=== PATIENT | male | born 1950 | race Caucasian/White ===

== ENCOUNTER 2017-01-23 15:33 | Inpatient (IN) | payer OTHER ==
[2017-01-23] MEDS ORDERED: NS 1,000 ML IV ONE (15:49)
--- NOTE | 2017-01-23 15:49 | EDPHY ---
H & P HPI/ROS: CHIEF COMPLAINT: Facial numbness HISTORY OF PRESENT ILLNESS: The patient is a 66-year-old male who presents to the emergency department via EMS with right facial numbness and right arm numbness. Patient states he drank heavily last night. This is quite typical for him. When he woke at 5:30 a.m. this morning he noticed when he woke that he had right-sided facial numbness. He states that his teeth felt like he had had novacane. He states at baseline he often has hand numbness and did not notice any particular worsening hand numbness on waking. His symptoms improved but remained present during his morning routine. Patient continued to drink this morning and states he drank approximately one pint of hard alcohol. He states that his right arm and right leg numbness waxed and waned throughout morning. He denies any headache. No visual change. No fevers or chills. EMS reported a negative Prescott Stroke Scale. REVIEW OF SYSTEMS: My complete review of systems is negative except as mentioned in the HPI. Past Medical/Surgical History: Includes high cholesterol Past surgical history: Noncontributory Social history: The patient drinks heavily. He denies drug use Smoking Status: Never smoked Physical Exam: Vitals noted GENERAL: Well-appearing, in no acute distress, alert. HEENT: Eyes normal to inspection, normal pharynx, no signs of dehydration. NECK: No thyromegaly, no lymphadenopathy, supple. RESPIRATORY: Clear to auscultation bilaterally, no rales, rhonchi or wheezing. CVS: Regular rate and rhythm, no rubs, murmurs, or gallops. ABDOMEN: Soft, nontender, nondistended, no organomegaly. BACK: Normal to inspection, no CVA tenderness. SKIN: Normal color, no rash, warm, dry. No pallor. EXTREMITIES: No pedal edema, no calf tenderness, no Homans sign or cords, no joint swelling. NEURO/PSYCH: Higher functions: Alert and Oriented x3. Normal speech and cognition. Normal mood and affect. Cranial nerves: Normal as tested. Cerebellar: Normal as tested. Good finger to nose, good [id number]-[id number]-lkin, normal gait. Peripheral exam: Normal motor exam. Normal sensation. Normal reflexes. NIHSS = 0 Constitutional: Initial Vital Signs Temperature (C) 36.6 C 01/23/17 15:39 Heart Rate 59 L 12/09/17 15:39 Respiratory Rate 18 01/23/17 15:39 Blood Pressure 103/90 H 01/23/17 15:39 O2 Sat (%) 98 01/23/17 15:39 O2 Delivery Mode Room Air Allergies/Adverse Reactions: No Known Allergies Allergy (Unverified 01/23/17 15:38) Home Medications: Medication Instructions Recorded Aspirin 325 mg (*) 01/23/17 Lipitor 01/23/17 Medical Decision Making - Diagnostics EKG Interpretation: EKG shows normal sinus rhythm, normal rate, normal axis, normal intervals. There are no ST or T-wave abnormalities. EKG is normal as interpreted by me. Imaging Results: Imaging Impressions Head CT 01/23/17 15:50 Impression: Normal noncontrast CT of the brain. Results called to Dr. Sophia Bishop at 5:00 PM at the time of the interpretation. Brain MRI 01/23/17 17:09 Impression: 1. Findings consistent with acute lacunar type infarct of the left thalamus. 2. Negative for acute cortical ischemia. 3. Numerous punctate foci of white matter T2 hyperintensity consistent with small vessel disease. ED Course/Re-evaluation: In the emergency department I discussed possibly etiologies with the patient. I answered all his questions. Laboratory studies and head CT were ordered. Patient states he took 3 full-strength aspirin this morning. The patient's NIHSS equals 0 and his neuro exam is normal. He woke with the symptoms at 5:30 a.m. this morning. He is out of the tPA window. I did not make him a stroke activation. EKG: Sinus rhythm at 57. Incomplete right bundle. Normal intervals. Flattened T-waves diffusely. I reviewed the patient's laboratory studies. CBC, chemistry and troponin were negative. Patient has an alcohol level 163. Awaiting CT results. CT: Please refer the dictated report. No acute disease noted. I discussed the results with the patient. I rechecked him. He had no focal deficits on exam. NIHSS = 0. MRI of the brain was ordered. MRI of the brain: Please refer the dictated report. The patient has a left thalmic lacunar infarct. 1850: I discussed the results with the patient. On recheck he still complained of right facial numbness. He states the right arm numbness has improved. His neuro exam is normal. Specifically, he has no decreased sensation on exam in the 1, V2 or V3 distribution. The rest of his sensory and motor exam are normal. NIHSS =0 I discussed case with Dr. Sanchez from the hospitalist service. She will admit the patient. Differential Diagnosis: My differential includes but is not limited to ischemic CVA, hemorrhagic CVA, dissection, aneurysm, intoxication, electrolyte abnormality, sugar abnormality, subarachnoid hemorrhage, subdural hematoma, epidural hematoma, Guillen's palsy - Data Points Laboratory Results: Laboratory Results 01/23/17 15:37 01/23/17 15:37 01/23/17 01/23/17 01/23/17 18:43 15:37 15:37 WBC RBC Hgb POC Hgb Hct POC Hct MCV MCH MCHC RDW Plt Count MPV Neut % (Auto) Lymph % (Auto) Grainger % (Auto) Eos % (Auto) Baso % (Auto) Nucleat RBC Rel Count Absolute Neuts (auto) Absolute Lymphs (auto) Absolute Monos (auto) Absolute Eos (auto) Absolute Basos (auto) Absolute Nucleated RBC Immature Gran % Immature Gran # PT 12.7 SEC SEC (12.0-15.0) INR 0.93 (0.83-1.16) APTT 26.3 SEC SEC (23.0-38.0) POC Sodium Sodium 146 mEq/L H mEq/L (134-144) POC Potassium Potassium 4.2 mEq/L mEq/L (3.5-5.2) POC Chloride Chloride 105 mEq/L mEq/L (97-110) Carbon Dioxide 25 mEq/l mEq/l (22-31) Anion Gap 16 mEq/L mEq/L (8-16) POC BUN BUN 21 mg/dL mg/dL (7-23) Creatinine 0.8 mg/dL mg/dL (0.7-1.3) POC Creatinine Estimated GFR > 60 Glucose 91 mg/dL mg/dL (70-100) POC Glucose Calcium 10.2 mg/dL mg/dL (8.5-10.4) Troponin I < 0.012 ng/mL ng/mL < 0.012 ng/mL ng/mL (0.000-0.034) (0.000-0.034) Ethyl Alcohol 164 mg/dL H mg/dL (0-10) 01/23/17 01/23/17 15:37 15:30 WBC 4.79 10^3/uL 10^3/uL (3.80-9.50) RBC 4.81 10^6/uL 10^6/uL (4.40-6.38) Hgb 17.2 g/dL g/dL (13.7-17.5) POC Hgb 17.0 gm/dL gm/dL (13.7-17.5) Hct 47.3 % % (40.0-51.0) POC Hct 50 % % (40-51) MCV 98.3 fL fL (81.5-99.8) MCH 35.8 pg H pg (27.9-34.1) MCHC 36.4 g/dL g/dL (32.4-36.7) RDW 12.8 % % (11.5-15.2) Plt Count 188 10^3/uL 10^3/uL (150-400) MPV 10.4 fL fL (8.7-11.7) Neut % (Auto) 58.7 % % (39.3-74.2) Lymph % (Auto) 32.6 % % (15.0-45.0) Grainger % (Auto) 8.1 % % (4.5-13.0) Eos % (Auto) 0.0 % L % (0.6-7.6) Baso % (Auto) 0.4 % % (0.3-1.7) Nucleat RBC Rel Count 0.0 % % (0.0-0.2) Absolute Neuts (auto) 2.81 10^3/uL 10^3/uL (1.70-6.50) Absolute Lymphs (auto) 1.56 10^3/uL 10^3/uL (1.00-3.00) Absolute Monos (auto) 0.39 10^3/uL 10^3/uL (0.30-0.80) Absolute Eos (auto) 0.00 10^3/uL L 10^3/uL (0.03-0.40) Absolute Basos (auto) 0.02 10^3/uL 10^3/uL (0.02-0.10) Absolute Nucleated RBC 0.00 10^3/uL 10^3/uL (0-0.01) Immature Gran % 0.2 % % (0.0-1.1) Immature Gran # 0.01 10^3/uL 10^3/uL (0.00-0.10) PT INR APTT POC Sodium 145 mEq/L H mEq/L (134-144) Sodium POC Potassium 3.8 mEq/L mEq/L (3.3-5.0) Potassium POC Chloride 105 mEq/L mEq/L (97-110) Chloride Carbon Dioxide Anion Gap POC BUN 23 mg/dL mg/dL (7-23) BUN Creatinine POC Creatinine 1.1 mg/dL mg/dL (0.7-1.3) Estimated GFR Glucose POC Glucose 93 mg/dL mg/dL (70-100) Calcium Troponin I Ethyl Alcohol Medications Given: Discontinued Medications Sodium Chloride (Ns) 1,000 mls @ 500 mls/hr IV EDNOW ONE PRN Reason: Protocol Stop: 01/23/17 17:48 Last Admin: 01/23/17 15:55 Dose: 1,000 mls Point of Care Test Results: 01/23/17 15:30 POC Sodium 145 H POC Potassium 3.8 POC Chloride 105 POC BUN 23 POC Creatinine 1.1 POC Glucose 93 Departure - Departure Disposition: [facility] Inpatient Acute Clinical Impression: Paresthesia CVA (cerebral vascular accident) Qualifiers: CVA mechanism: unspecified Qualified Code(s): I63.9 - Cerebral infarction, unspecified Condition: Good
--- NOTE | 2017-01-23 15:59 | CPEKG ---
Heart Rate: 57 RR Interval: 1053 P-R Interval: 188 QRSD Interval: 110 QT Interval: 452 QTC Interval: 440 P Congers: 60 QRS Congers: 22 T Wave Congers: 169 EKG Severity - ABNORMAL ECG - EKG Impression: SINUS RHYTHM EKG Impression: INCOMPLETE RIGHT BUNDLE BRANCH BLOCK Electronically Signed By: Chao Castaneda 25-Jan-2017 08:45:00
[2017-01-23 16:01] LABS: % IMMATURE GRANULYOCYTES 0.2 % (0.0-1.1); ABSOLUTE IMMATURE GRANULOCYTES 0.01 10^3/uL (0.00-0.10); ADD DIFF? NO; ADD MORPH? NO; ADD SCAN? NO; ATYPICAL LYMPHOCYTE FLAG 10 (0-99); FRAGMENT RBC FLAG 0 (0-99); HEMATOCRIT 47.3 % (40.0-51.0); HEMOGLOBIN 17.2 g/dL (13.7-17.5); LEFT SHIFT FLG 0 (0-99); LIPEMIA HEMOLYSIS FLAG 90 (0-99); MEAN CELL HEMOGLOBIN 35.8 pg (27.9-34.1); MEAN CELL HEMOGLOBIN CONCENTR. 36.4 g/dL (32.4-36.7); MEAN CELL VOLUME 98.3 fL (81.5-99.8); MEAN PLATELET VOLUME 10.4 fL (8.7-11.7); PLATELET CLUMPS FLAG 0 (0-99); PLATELET COUNT 188 10^3/uL (150-400); RED BLOOD CELL COUNT 4.81 10^6/uL (4.40-6.38); RED CELL DISTRIBUTION WIDTH 12.8 % (11.5-15.2)
[2017-01-23 16:08] LABS: ANION GAP 16 mEq/L (8-16); CALCIUM 10.2 mg/dL (8.5-10.4); CARBON DIOXIDE 25 mEq/l (22-31); CHLORIDE 105 mEq/L (97-110); CREATININE 0.8 mg/dL (0.7-1.3); ETHANOL SERUM 164 mg/dL (0-10); GLOMERULAR FILTRATION RATE > 60; GLUCOSE 91 mg/dL (70-100); POTASSIUM 4.2 mEq/L (3.5-5.2); SODIUM 146 mEq/L (134-144)
[2017-01-23 16:15] LABS: APTT 26.3 SEC (23.0-38.0); INR 0.93 (0.83-1.16); PROTIME(PATIENT) 12.7 SEC (12.0-15.0)
[2017-01-23 16:20] LABS: TROPONIN I < 0.012 ng/mL (0.000-0.034)
--- NOTE | 2017-01-23 18:40 | CPEKG ---
Heart Rate: 59 RR Interval: 1017 P-R Interval: 176 QRSD Interval: 106 QT Interval: 484 QTC Interval: 480 P Elbert: 68 QRS Elbert: 36 T Wave Elbert: 56 EKG Severity - BORDERLINE ECG - EKG Impression: SINUS RHYTHM EKG Impression: BORDERLINE PROLONGED QT INTERVAL Electronically Signed By: Chao Castaneda 25-Jan-2017 08:44:50
[2017-01-23] MEDS ORDERED: ONDANSETRON 4 MG/2 ML VIAL IVP PRN (21:19)
[2017-01-23] MEDS ORDERED: ACETAMINOPHEN 325 MG TAB PO PRN (21:19)
[2017-01-23] MEDS ORDERED: ONDANSETRON DISINTEGRATING 4 MG TAB PO PRN (21:19)
--- NOTE | 2017-01-23 22:00 | GHP ---
[f rep st] HISTORY AND PHYSICAL DATE OF ADMISSION: 01/23/2017 CHIEF COMPLAINT: Right facial numbness. HISTORY OF PRESENT ILLNESS: A 66-year-old male with a history of alcohol use disorder, hyperlipidemia, and nicotine use presents with nearly 12 hours of right facial numbness and intermittent right body numbness. He reports drinking nearly a fifth of liquor last night, woke up this morning around 5:30 a.m. noting right facial numbness. 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 He noted the numbness, continued about his morning in which he actually drank another pint of liquor. Around midday, had onset of right upper extremity and right lower extremity numbness, no chest pain, no palpitations, no lightheadedness, no weakness. Discussed with his , called EMS. At baseline , he takes full-dose aspirin 325. Alcohol use disorder: Since he retired, he has been working part-time at [employer], but has more time on his hands so he is often drinking more alcohol than he should. He often drinks a fifth of liquor a few days per week. He denies any history of alcohol withdrawal symptoms and can go 2 days without drinking anything. . Tobacco use: He used to chew tobacco, but now has been using nicotine gum. He does use this multiple times per day and has never tried to quit. Hyperlipidemia: Lipitor 10 mg. Reports his total cholesterol is approximately 150. HDL has always been low, but LDL has been reasonable. ROS: No CP, SOB, GERARDO, visual changes, rhinorrhea, hearing changes, nausea, vomiting, diarrhea, constipation, lightheadedness, weakness, bruising, bleeding , new allergies, rash or other new symptoms except as noted above. PAST MEDICAL HISTORY: Hyperlipidemia, questionable hypertension although he does not take medications, alcohol use disorder, tobacco use. PAST SURGICAL HISTORY: Inguinal hernia repair, vasectomy. FAMILY HISTORY: Dad with a CVA at age 64. Dad also had CAD, status post CABG. SOCIAL HISTORY: Retired, alcohol and tobacco use. No other drugs. , works at [employer]. MEDICATIONS: Full-dose aspirin and Lipitor 10. ALLERGIES: No known allergies. PHYSICAL EXAMINATION: VITAL SIGNS: 169/106, heart rate 72, O2 95 on room air, 36.6 degrees C. GENERAL: Pleasant, no acute physical distress, appropriate. HEENT: Pupils equal and reactive, approximately 4 mm. Anicteric. No scleral injection. No cervical lymphadenopathy. No bruits. No thyromegaly. CARDIOVASCULAR: Heart regular. No murmurs, rubs, or gallops. RESPIRATORY: CTA bilaterally. No wheezes, rubs, or rhonchi. ABDOMEN: Soft, nontender, nondistended. Normal bowel sounds. NEURO: CN 2-12 intact and symmetrical. excellent strength in upper and lower extremities 5+/5. Sensation to light touch intact although slightly altered in right maxillary distribution. Normal finger to nose. Negative rhomberg. No pronator drift. SKIN: No skin rash. LABORATORY DATA: CBC notable only for MCH slightly elevated. Hemoglobin 17, hematocrit 47, normal WBCs. Coags within normal limits. Chemistry notable for sodium 146, potassium 4.2, creatinine 0.8. Troponin negative x2. Normal calcium. Alcohol level 164 on admission. IMAGING: Notable for CT and MRI. Both were reviewed. MRI declares acute lacunar type infarct of the left thalamus, negative acute cortical ischemia. Other findings suggestive of small vessel ischemic disease. EKG: Normal sinus rhythm. ASSESSMENT: A 66-year-old man with a history of hyperlipidemia, alcohol use disorder, and tobacco use presenting with left thalamic infarct, acute with symptoms of right facial numbness and right-sided numbness in extremities. Cerebrovascular accident: Patient had episode while on full-dose aspirin so have added Plavix. Will continue aspirin 325 until discussion with Neuro. Check echocardiogram as well as carotid ultrasound, telemetry overnight. BP Goal 120/70. HTN: We will start him on amlodipine 5 mg once daily to support blood pressure. Suspect he is borderline high but given CVA, will need to tighten up control. Alcohol use disorder: Discussed with patient the importance of cutting back on his drinking, preferably to go off. He is aware that this is a wake-up call and that he needs to cut back. Tobacco use disorder: Continues to use Nicorette gum. We discussed the importance of cessation completely from this given it can increase his risk of vascular disease. Hyperlipidemia: Continue Lipitor, may titrate for LDL less than 70. Lipid panel in morning. CODE STATUS: Full code, but he does have a healthcare proxy and living will. Healthcare proxy is his . DISPOSITION: Admit to med/surg unit, monitoring, stroke workup, and disposition when testing comes back. DVT prophylaxis: Lovenox. /[id number]/MODL MTDD
--- NOTE | 2017-01-24 04:27 | PDMN ---
Medical Necessity Medical necessity: C/M review: Patient meets INPT criteria under [facility] M-83 Stroke, ischemic; Acute cerebrovascular accident, left thalmic infarct, right facial numbness and right sided numbness in extremities, hypertension requiring planned 01/24/2017 bilateral carotid Doppler ultrasound, echocardiogram, ongoing cardiac monitoring, stroke workup, comorbid alcohol use disorder, tobacco use disorder, hyperlipidemia. MD anticipates > 2 MN LOS for ongoing med nec for eval and TX of above.
[2017-01-24 05:35] LABS: CHOLESTEROL 133 mg/dL (140-220); CHOLESTEROL/HDL RATIO 3.09 RATIO (1.00-4.97); HIGH DENSITY LIPOPROTEIN 43 mg/dL (40-65); LDL/HDL RATIO 1.44 RATIO (1.00-3.64); LOW DENSITY LIPOPROTEIN 62 mg/dL (80-100); NON-HIGH DENSITY LIPOPROTEIN 90 mg/dL (90-129); TRIGLYCERIDE 141 mg/dL (40-150); VERY LOW DENSITY LIPOPROTEINS 28 mg/dL (8-25)
[2017-01-24 08:09] VITALS: RESP 18
[2017-01-24] MEDS ORDERED: amLODIPine BESYLATE 5 MG TAB PO SCH (09:00)
[2017-01-24] MEDS ORDERED: ASPIRIN 325 MG TAB PO SCH (09:00)
[2017-01-24] MEDS ORDERED: ATORVASTATIN CALCIUM 10 MG TAB PO SCH (09:00)
[2017-01-24] MEDS ORDERED: CLOPIDOGREL BISULFATE 75 MG TAB PO SCH (09:00)
--- NOTE | 2017-01-24 09:22 | ECHO ---
[email or web address] [address] [address] Main: [phone] Fax: [email or web address] Echocardiogram Name: EDEL SCHERER MR#: [id number] Study Date: 01/24/2017 Study Time: 08:33 AM Date of : 1950 Age: 66 year(s) Height: 182.9 cm (72 in.) Weight: 99.79 kg (220 lb.) BSA: 2.22 m2 Gender: Male Examination: Echo Indication: Cerebrovascular: prior CVA Image Quality: Technically Difficult Contrast: Requested by: Dariana Sanchez BP: 134 mmHg/68 mmHg Heart Rate: Rhythm: Indication: Cerebrovascular: prior CVA Procedure Staff Drill Press Set Up Operator: Ashanti Akins Reading Physician: Stephen Solorzano Requesting Provider: Conclusions: Normal size left ventricle. Mild concentric LV hypertrophy. Cannot rule out wall motion abnormality due to poor endocardial resolution. There is no mitral valve regurgitation. There is no aortic valve regurgitation. There is no significant tricuspid valve regurgitation. Measurements: Chambers Valvular Assessment AV/MV Valvular Assessment TV/PV Normal Normal Normal Name Value Range Name Value Range Name Value Range IVSd (2D): 1.2 cm (0.6 cm-1.1 AV meanP mmHg ( - ) PV Vmax: 0.99 m/s (0.6 m/s-0.9 cm) LVOT Vmax: 1.23 m/s (0.7 m/s-1.1 m/s) LVDd (2D): 4.8 cm (4.2 cm-5.9 m/s) PV PGmax: 4 mmHg ( - ) cm) MV E Vmax: 0.76 m/s ( - ) LVDs (2D): 2.8 cm (2.1 cm-4 MV A Vmax: 0.94 m/s ( - ) cm) MV E/A: 0.81 ( - ) LVPWd (2D): 1.3 cm (0.6 cm-1 cm) LVEF (2D): 73 (>=54 %) Continued Measurements: Chambers Valvular Assessment AV/MV Name Value Name Value LADs Lon.6 cm MV DecTime: 222 m/s LA Area: 19.5 cm2 MV E/E' Septal: 9.00 TAPSE: 2.0 cm MV E/E' Lateral: 4.80 Patient: EDEL SCHERER Study Date: 01/24/2017 Page 1 of 2 08:33 AM Additional Vessels Name Value Ao Ascendin.7 cm Findings: Left Ventricle: Normal size left ventricle. Mild concentric LV hypertrophy. Cannot rule out wall motion abnormality due to poor endocardial resolution. EF is 73 %. Right Ventricle: Normal size right ventricle. Normal RV function. Left Atrium: The left atrium is normal in size. Right Atrium: The right atrium is normal in size. Mitral Valve: The mitral valve is normal in appearance and function. There is no mitral valve regurgitation. No mitral stenosis is present. Aortic Valve: The aortic valve is normal in appearance and function. There is no aortic valve regurgitation. No aortic valve stenosis is present. Tricuspid Valve: The tricuspid valve is normal in appearance and function. There is no significant tricuspid valve regurgitation. Pulmonic Valve: Pulmonary valve not well visualized. Aorta: Normal size ascending aorta measuring 3.7 cm. Pericardium: No pericardial effusion. There is pericardial fat. (No Signature Object) Patient: EDEL SCHERER Study Date: 01/24/2017 Page 2 of 2 08:33 AM [id number]
[2017-01-24 16:23] VITALS: BP 140/80; PULSE 52; TEMP 98.5; O2SAT 95
--- NOTE | 2017-01-24 17:39 | PDDCSUM ---
Discharge Summary Discharge Summary: DISCHARGE DIAGNOSES: -acute left thalamic stroke, presented to hospital outside of window for tPA therapy CONSULTANTS: Dr. Kang Butcher PROCEDURES: CT scan of head with no acute abnormality MRI of brain with small left thalamic stroke, consistent with lacunar lesion Echocardiogram with no concerning abnormalities Doppler ultrasound of carotid arteries with no flow limiting stenoses identified Cardiac EKG monitoring with no evidence of atrial fibrillation HOSPITAL COURSE SUMMARY: This patient presented to the hospital with right-sided numb sensation of the upper and lower extremities and face. The symptoms were present upon awakening in the morning from his night of sleep. They had not been present prior. There was no headache, no change in vision, no weakness or incoordination and no other acute neurologic symptoms. There was no fever, no history of injury, no history of illicit drug use. He has never had anything that sounds like a TIA or stroke before. He has noticed no evidence of any bleeding. He is not diabetic and does not take blood sugar lowering medicines. He does take a daily aspirin 325 mg and had been taking it daily recently. He does have a history of high cholesterol and is on a statin medicine for that, but does not have diabetes or hypertension or vascular disease. His father did have a stroke. The patient underwent imaging studies with an acute left thalamic ischemic stroke present. There is no evidence of bleeding and no other lesions identified and there is no evidence of any vascular abnormalities. On cardiac monitoring he had sinus rhythm without any AFib. There was no significant hypotension, there was some very mild hypertension intermittently but this resolved and he is normotensive at discharge. There was no fever and there were no significant lab abnormalities. He does take a daily statin this LDL was at 62. The patient remained neurologically and otherwise stable here. He was seen by Dr. Burton from Neurology. Recommendation at this time is to change from aspirin to Plavix as a platelet inhibitor. He will continue close follow-up with his primary care physician for monitoring of blood sugar blood glucose and cholesterol. We did talk to him about possible outpatient cardiac monitoring but the patient at this time declined to do that. He will follow up with Dr. Maida Mathias his primary care doctor within 1-2 weeks. PENDING TEST RESULTS: None MEDICATION CHANGES: Aspirin discontinued Plavix 75 mg daily added Greater than 35 minutes bedside and care coordination time today
--- NOTE | 2017-01-24 20:12 | NEUROPROG ---
Assessment: [id number] Neurology Consult Note CC: Dr. Mccormack consulted neurology for stroke. Results placed in EMR for his review. HPI: Pt admitted to [facility] on 01/23/17 for right facial and body numbness for 12 hours prior to admission. Due to concern for stroke an MRI was acquired and showed an acute left thalamic lacunar stroke. TTE and carotid U/S unremarkable. Pt admitted for full stroke evaluation. I initially saw him on 01/24/17. His only complaint was mild right facial sensory changes. PMHx: stroke, alcohol abuse, HLD, inguinal hernia, possible HTN Home Meds: ASA 325 mg qd, atorvastatin 10 mg qd SHx: +tobacco, +alcohol FHx: stroke, CAD ROS: No acute fever, total vision loss, active severe chest pain, respiratory failure, total body severe rash, total bowel/bladder incontinence, psychosis, active seizures, or active bleeding O: VS reviewed General: Alert Eyes: Fundoscopic exam not able to visualize optic disks CV: Heart RRR, no murmur, no carotid bruit Lungs: Clear to auscultation bilaterally, no rhonci or rales Neuro: - Mental: . Oriented x person/place/date . concentration appears normal . speech fluency/comprehension normal . memory appears normal . fund of knowledge appear intact - Cranial Nerves: . II: PERRL, VFFTC . III/IV/: EOMI, no nystagmus, normal smooth pursuits, no Ptosis . V: facial sensation intact to LT but patient reports right side of face feels different . VII: face symmetric to eye closure and smile . VIII: hearing intact to conversation . IX/X: uvula raises symmetrically . XI: SCM 5/5 B/L strength . XII: tongue protrudes midline w/nl strength - Motor: . Tone: normal tone in all 4 extrem . Strength: no pronator drift, strength 5/5 throughout (B/L delt, bic, tri, hand boom supervisor, hf/he, df/pf) - Reflexes: B/L bic/BR/patella 2/4 - Sensory: all 4 extrem intact to light touch - Coord: [id number] wnl, JEAN-PAUL wnl, [id number] wnl - Gait: deferred - NIH SS 1 (altered sensation on right face) Labs: 01/23/17- CBC wnl, Coags wnl, Chem Na 145 01/24/17- H1AC pending, LDL 62L Rads: 01/23/17- Brain MRI w/o con: left thalamic acute small stroke, white matter changes consistent with small vessel disease (I personally visualized the images on 01/24/17) 01/24/17- Carotid U/S: Minimal plaque formation is seen involving the carotid bifurcations bilaterally with no evidence of flow-limiting carotid stenosis. 01/24/17- TTE: no cardioembolic source seen Assessment: 1. Acute Left Thalamic Stroke on 01/23/17: NIH SS 1 (right side face sensory changes) and brain MRI showed acute left thalamic stroke. Based on size of stroke, location, and unremarkable telemetry, TTE, and carotid U/S, I feel this is likely a small vessel stroke. LDL < 70 on statin. ASA 325 mg changed to plavix 75 mg qd to address stroke. Pt declined implanted monitor technician to exclude paroxysmal afib on 01/24/17. 2. Alcohol abuse disorder: Pt told alcohol abuse can increase stroke risk as well as many other serious medical problems. I recommended total alcohol cessation. 3. Nicotine use: Pt counseled this may increase stroke risk and recommended he stop. Plan: - Change asa 325 mg qd (stroke occurred on this medication) to plavix 75 mg qd - 24 hour telemetry - blood pressure < 220/120 x 48 hours then < 140/90 - H1AC < 7.0 (pending) - LDL < 70 (62), continue atorvastatin 10 mg qd - Recommend total tobacco and alcohol cessation - Pt declined implanted monitor technician to exclude afib - F/U in neurology clinic in 1-4 weeks after discharge Neurology will sign off. Please call for any change in neurologic status or if telemetry shows any afib or other concerning finding. Objective: Vital Signs Temp Pulse Resp BP Pulse Ox 36.9 C 52 L 18 140/80 H 95 01/24/17 16:21 01/24/17 16:21 01/24/17 16:21 01/24/17 16:21 01/24/17 16:21 01/23/17 01/24/17 01/25/17 05:59 05:59 05:59 Intake Total 1000 450 Balance 1000 450 PT 12.7 SEC (12.0-15.0) 01/23/17 15:37 INR 0.93 (0.83-1.16) 01/23/17 15:37 Allergies/Adverse Reactions: No Known Allergies Allergy (Unverified 01/23/17 15:38)
[2017-01-25 01:03] LABS: HEMOGLOBIN A1C 5.5 % (4.0-6.0)
--- NOTE | 2017-01-26 15:56 | ASDISCHSUM ---
Discharge Information Plan Status:Home with No Needs Medically Cleared to Leave: Discharge Date:01/24/2017 05:54 PM CM D/C Disposition:Home, Routine, Self-Care ADT D/C Disposition:Home, Routine, Self-Care Projected Discharge Date:01/24/2017 05:54 PM Transportation at D/C:Family Discharge Delay Reason: Follow-Up Date:01/24/2017 05:54 PM Discharge Slot: Final Diagnosis: Placement Information Patient Contact Information Contact Name:DEVIN Relationship: Address:[address] [facility] [[email or web address]] Work Phone: City:[place] Alternate Phone: [facility]/Zip Code:[place] [address] Email: Financial Information Financial Class: Primary Plan Desc:MEDICARE INPATIENT Primary Plan Number:[id number] Secondary Plan Desc:[facility] Secondary Plan Number:[id number] Assessment Information Intervention Information
== END 2017-01-24 17:54 | disposition home or self-care (01) | DRG 66 ==
LOC: EDUNIT# → OBSVTOIN 19:17 → F3N 21:30
PROVIDERS: ADMIT Internal Medicine Geriatric Medicine; ATTEND Internal Medicine Geriatric Medicine
DX: I63.8 Other cerebral infarction (principal); F10.20 Alcohol dependence, uncomplicated; F17.220 Nicotine dependence, chewing tobacco, uncomplicated; E78.5 Hyperlipidemia, unspecified; Z79.82 Long term (current) use of aspirin
CPT/HCPCS: 82947-QW; 92610-GN; G0480; G8996-GN-CH; G8997-GN-CH; G8998-GN-CH